=== PATIENT | male | born 1995 | race Asian ===

== ENCOUNTER 2016-12-25 06:15 | Day surgery (SDC) | payer OTHER ==
[2016-12-24 10:26] VITALS: BMI 17.3
[2016-12-25] VITALS (18 sets, daily range): BP systolic 69–120; BP diastolic 37–63; PULSE 56–102; RESP 13–33; Ht 170.2 cm; Wt 46.4 kg
[~2016-12-25] VITALS: Ht 170.2 cm; Wt 46.4 kg
[2016-12-25] MEDS ORDERED: CEFAZOLIN 2 GM/50 ML (PMX) 50 ML IVPB ONE (07:00)
[2016-12-25] MEDS ORDERED: PROPOFOL 20 ML ONE (07:31)
[2016-12-25] MEDS ORDERED: MIDAZOLAM 1 MG/ML 2 ML INJ ONE (07:32)
[2016-12-25] MEDS ORDERED: FENTAnyl 50 MCG/ML VIAL ONE ×3 (07:32→08:12)
[2016-12-25] MEDS ORDERED: BUPIVACAINE 0.25% (MPF) 30 ML INJ ONE (07:42)
--- NOTE | 2016-12-25 07:55 | HPN ---
Date/Time of Note Date/Time of Note DATE: 12/25/16 TIME: 07:55 Interval H&P Admission Note Pt. seen H&P reviewed: No system changes MADIE STEWART MD Dec 25, 2016 07:55
[2016-12-25] MEDS ORDERED: OXYCODONE/ACETAMINOPHEN (5/325) TAB PO PRN ×2 (08:30→09:00)
[2016-12-25] MEDS ORDERED: ONDANSETRON 4 MG INJ IV PRN (08:30)
[2016-12-25] MEDS ORDERED: morphine (1 MG/ML) 10ML SYRINGE IV PRN ×3 (08:30)
[2016-12-25] MEDS ORDERED: HYDROmorphONE (0.2 MG/ML) 10ML SYG IV PRN ×3 (08:30)
[2016-12-25] MEDS ORDERED: MEPERIDINE 25 MG INJ IV PRN (08:30)
[2016-12-25] MEDS ORDERED: DIPHENHYDRAMINE 50 MG INJ IV PRN (08:30)
[2016-12-25] MEDS ORDERED: ONDANSETRON 4 MG INJ ONE (08:31)
[2016-12-25] MEDS ORDERED: METOCLOPRAMIDE 10 MG INJ ONE (08:31)
[2016-12-25] MEDS ORDERED: DEXAMETHASONE 4 MG/ML 1 ML INJ ONE (08:31)
[2016-12-25] MEDS ORDERED: KETOROLAC 30 MG INJ ONE (08:31)
[2016-12-25] MEDS ORDERED: CEFAZOLIN 1 GM INJ ONE (08:31)
[2016-12-25] MEDS ORDERED: BUPIVACAINE 0.25% (MPF) 30 ML INJ INJ ONE (08:46)
--- NOTE | 2016-12-25 10:14 | OPR ---
DATE OF OPERATION: 12/25/2016 PREOPERATIVE DIAGNOSIS: Phimosis. POSTOPERATIVE DIAGNOSIS: Phimosis. OPERATION PERFORMED: Circumcision. TECHNIQUE: The patient was brought to the operating room. General anesthesia was induced. The pat ient was positioned in supine position. Time out was done. The patient identified by his name, bir th date, and the procedure. He was given 2 grams of Ancef IV at the start of the procedure. The ge nital area was then prepped and draped in the usual sterile manner. The foreskin was marked at the level of the connelly. Then a dorsal slit was done to be able to retract the foreskin back, and then the penis was painted with Betadine solution again and cleaned. Another incision was made about 1 c m proximal to the connelly, and the skin between the 2 incisions was removed. All the bleeders were e lectrocoagulated. The frenular skin was also clamped and then cut and then later on approximated in vertical fashion to the circumcision incision with 4-0 Vicryl running interlocked suture for hemost asis. Then the subcutaneous tissue was approximated with 3-0 Vicryl at the 9, 12, 3, and 6 o'clock positions and the skin approximated with 3-0 Vicryl interrupted sutures. At the end of the procedur e, the patient was given 0.5% Marcaine injection around the base of the penis for local anesthesia. Then the incision was covered with Vaseline gauze and wrapped with Chelsea. The patient was transfer red to recovery room in stable and satisfactory condition. Dictated By: MADIE BECERRA/NICK Conf#: [id number] DID#: [id number]
== END 2016-12-25 11:00 | disposition home or self-care (01) ==
LOC: SDS 06:15
PROVIDERS: ATTEND Urology
DX: N47.1 Phimosis (principal)
CPT/HCPCS: 54161; 88304; J0690; J1100; J1885; J2250; J2405; J2765; J3010; Z7512; Z7610